=== PATIENT | female | born 1995 | race Two or more races ===

== ENCOUNTER 2025-09-15 12:58 | Emergency (ER) | payer BC, OTHER ==
[~2025-09-15] VITALS: Ht 160 cm; Wt 99.2 kg
[2025-09-15 14:23] VITALS: BP 148/91; PULSE 94; RESP 18; TEMP 98.1; O2SAT 99
--- NOTE | 2025-09-15 15:06 | ED.PDOC ---
Musculoskeletal HPI Comments 30 y/o F, presents to the ED for CC of s/p fall injury. Patient states, she had a slip and fall on her stair today (09/15/25 ) twisting her right ankle and 3rd, 4th, and 5th toes. Following trauma, patient has notable swelling to her right lateral foot and has been unable to bear weight onto her right extremity as a re sult. Patient denies head injury, loss of consciousness, or dizziness. No other symptoms or modifying factors are present at this time. Chief Complaint: Lower Extremity Time Seen by MD: 15:00 Reviewed Notes: Nurses Notes, Medications, Allergies Allergies: Coded Allergies: Cephalexin (Verified Allergy, Unknown, 09/15/25) Information Source: Patient Mode of Arrival: Ambulatory Location: Right Extremity Location: Ankle, Toe 3, Toe 4, Other (toe 5) Timing: Minutes Prehospital treatment: None Severity: Moderate Able to Move Extremity: Yes Bear Weight: No Pain: Moderate Mechanism: Other (fall) Circumstances: Fall Onset of Symptoms: After Trauma Symptoms: Swelling, Pain DVT Risk Factors: NONE Associated signs and symptoms: Ankle pain Past Medical History PAST MEDICAL HISTORY: Denies Surgical History: Denies all surgeries IT APPLICATIONS ANALYST History: Denies all IT APPLICATIONS ANALYST Hx Family History Family History: Unknown Social History Smoker: Non-Smoker Alcohol: Denies ETOH Use Drugs: Denies Drug Use Lives In: Home Constitutional: denies: chills, diaphoresis, fatigue, fever, malaise, sweats, weakness, others EENTM: denies: blurred vision, double vision, ear bleeding, ear discharge, ear drainage, ear pain, ear ringing, eye pain, eye redness, hearing loss, mouth pain, mouth swelling, nasal discharge, nose bleeding, nose congestion, nose pain, photophobia, tearing, throat pain, throat swelling, voice changes, others Respiratory: denies: cough, hemoptysis, orthopnea, SOB at rest, shortness of breath, SOB with excertion, stridor, wheezing, others Cardiovascular: denies: chest pain, dizzy spells, diaphoresis, Dyspnea on exertion, edema, irregular heart beat, left arm pain, lightheadedness, palpitations, PND, syncope, others Gastrointestinal: denies: abdomen distended, abdominal pain, blood streaked bowels, constipated, diarrhea, dysphagia, difficulty swallowing, hematemesis, melena, nausea, poor appetite, poor fluid intake, rectal bleeding, rectal pain, vomiting, others Genitourinary: denies: abnormal vagina bleeding, burning, dyspareunia, dysuria, flank pain, frequency, hematuria, incontinence, pain, , vagina discharge, urgency, others Neurological: denies: dizziness, fainting, headache, left sided numbness, left sided weakness, numbness, paresthesia, pre-existing deficit, right sided numbness, right sided weakness, seizure, speech problems, tingling, tremors, weakness, others Musculoskeletal: reports: others (right ankle tenderness); denies: back pain, gout, joint pain, joint swelling, muscle pain, muscle stiffness, neck pain Integumetry: denies: bruises, change in color, change in hair/nails, dryness, laceration, lesions, lumps, rash, wounds, others Allergic/Immunocompromised: denies: Difficulty Healing, Frequent Infections, Hives, Itching, others Hematologic/Lymphatic: denies: anemia, blood clots, easy bleeding, easy bruising, swollen glands, others Endocrine: denies: excessive hunger, excessive sweating, excessive thirst, excessive urination, flushing, intolerance to cold, intolerance to heat, unexplained weight gain, unexplained weight loss, others Psychiatric: denies: anxiety, bipolar disorder, depression, hopeless, panic disorder, schizophrenia, sleepless, suicidal, others All Other Systems: Reviewed and Negative Physical Exam General Appearance: No Apparent Distress, Normal HEENT: Normal ENT Inspection, Pharynx Normal Neck: Full Range of Motion, Non-Tender, Normal, Normal Inspection Respiratory: Chest Non-Tender, Lungs Clear, No Accessory Muscle Use, No Respiratory Distress, Normal Breath Sounds Cardiovascular: No Edema, No Murmur, No Gallop, Normal Peripheral Pulses, Regular Rate/Rhythm Breast Exam: Deferred Gastrointestinal: No Organomegaly, Non Tender, No Pulsatile Mass, Normal Bowel Sounds, Soft Genitalia: Deferred Pelvic: Deferred Rectal: Deferred Extremities: No calf tenderness, Normal capillary refill, Normal inspection, Normal range of motion, Non-tender, No pedal edema Musculoskeletal : Location: Right Extremity Location: Ankle, Other (toe 3,4,5) Apperance: Tenderness Neurologic: Alert, electrician telephone II-XII nml as Tested, No Motor Deficits, Normal Affect, Normal Mood, No Sensory Deficits Cerebellar Function: Normal Reflexes: Normal Skin: Dry, Normal Color, Warm Lymphatic: No Adenopathy Was a procedure done? Was a procedure done?: No Differential Diagnosis EXT Differential Diagnosis: Fracture, Sprain X-Ray, Labs, Meds, VS Vital Signs Date Time Temp Pulse Resp B/P (MAP) Pulse Ox O2 Delivery O2 Flow Rate FiO2 09/15/25 14:23 98.1 94 18 148/91 (110) 99 98.1 09/15/25 14:23 94 18 99 Room Air 09/15/25 12:59 98.2 85 16 129/58 99 98.2 [place] [id number] [place] [id number] Ph: [phone] DIAGNOSTIC IMAGING Diagnostic Imaging Report : [id number] Signed PATIENT: MIKI SAN ACCT: [id number] UNIT: [id number] : 1995 LOC: ER ROOM / BED: / AGE / SEX: 30 / F ADM STATUS: REG ER SERVICE [id number] ORDERING PHYSICIAN: MILAD MADRID MD PROCEDURE(s): RFOOT - R FOOT 3 VIEW XRAY REASON: injury ORDER NUMBER(s): [id number], ACCESSION NUMBER(s): [id number] EXAM: XY R FOOT 3 VIEW XRAY INDICATION: injury TECHNIQUE: 3 views of the right foot COMPARISON: None FINDINGS/IMPRESSION: Oblique distal 5th metatarsal diaphyseal fracture. Small plantar calcaneal spur. ATED BY: PERRY DOTSON MD DICTATED DATE/TIME: 09/15/25 1508 SIGNED BY: PERRY DOTSON MD SIGNED DATE/TIME: 09/15/25 1508 CC: Time of 1ST Reevaluation: 15:30 Reevaluation 1ST: Unchanged Patient Education/Counseling: Diagnosis, Treatment Family Education/Counseling: Diagnosis, Treatment Departure 1 Departure Time of Disposition: 17:12 Impression: Primary Impression: Metatarsal fracture Disposition: 01 HOME / SELF CARE / HOMELESS Condition: Good Additional Instructions: Follow up with your doctor in three days. Splint care as explained. Use crutches and avoid weight-bearing on the affected foot. Elevate and use cold compress as needed. Stay out of work for the next three days. Feel free to return to the emergency room for any concerns. e-Prescriptions Ibuprofen Micronized (MOTRIN TABLET) 600 Mg Tb 600 MG PO TID PRN, #40 TAB *Black box warning-NSAIDS can increase risk of MT & hypertension, GI irritation, ulceration, bleed, perferation. Do not use post cardiac surgery. Use short duration/lowest effective dose. Prov: MILAD MADRID MD 09/15/25 Discharged With: Self, Relative Critical Care Note Critical Care Time?: No Stability Stability form required: No Heart Score Heart Score: Heart Score Response (Comments) Value History N/A 0 EKG N/A 0 Age N/A 0 Risk Factors N/A 0 Troponin N/A 0 Total 0 I personally scribed for MILAD MADRID MD ([email or web address]) on 09/15/25 at 15:06. Electronically submitted by Brenda Wilkinson ([employer]). I personally scribed for MILAD MDARID MD ([email or web address]) on 09/15/25 at 15:43. Electronically submitted by Brenda Wilkinson ([employer]). I personally scribed for MILAD MADRID MD ([email or web address]) on 09/15/25 at 15:44. Electronically submitted by Brenda Wilkinson ([employer]). MILAD MADRID MD Sep 15, 2025 15:06
--- NOTE | 2025-09-15 15:10 | DVH ---
EXAM: XY R FOOT 3 VIEW XRAY INDICATION: injury TECHNIQUE: 3 views of the right foot COMPARISON: None FINDINGS/IMPRESSION: Oblique distal 5th metatarsal diaphyseal fracture. Small plantar calcaneal spur.
[2025-09-15] MEDS ORDERED: IBU600T PO (17:13)
== END 2025-09-15 16:20 | disposition home or self-care (01) ==
LOC: EEVIPCON 12:58 → ER 12:58
DX: S92.301A Fracture of unspecified metatarsal bone(s), right foot, initial encounter for closed fracture (principal); Z88.1 Allergy status to other antibiotic agents; W01.0XXA Fall on same level from slipping, tripping and stumbling without subsequent striking against object, initial encounter; Y93.89 Activity, other specified; Y92.89 Other specified places as the place of occurrence of the external cause; Y99.8 Other external cause status
CPT/HCPCS: 29515; 73630